=== PATIENT | male | born 1980 | race Caucasian/White ===

== ENCOUNTER 2022-01-27 23:40 | Inpatient (IN) | payer OTHER, SELFPAY ==
[2022-01-27 23:41] VITALS: BP 132/90; PULSE 63; RESP 18; TEMP 37.1; O2SAT 97; BMI 22.4
--- NOTE | 2022-01-27 23:54 | ED_ITS ---
HPI - Psych General Chief Complaint: Psychiatric Symptoms Stated Complaint: crisis Time Seen by Provider: 01/27/22 23:46 Source: patient and EMS Mode of arrival: EMS Limitations: no limitations History of Present Illness HPI Narrative: 41-year-old male history of anxiety, atrial fibrillation, CVA presenting to the emergency department via ambulance on a Section 12 for suicidal ideation with plan to overdose on prescription medicine. Patient reports that he has been feeling suicidal for the past few days, it has been worsening. Tells me he recently left his girlfriend of 20 years, his dogs, the holiday season seems to be a trigger for him.. Denies visual, auditory and tactile hallucinations. Denies drugs, alcohol and tobacco. Patient was seen by the behavioral health team in the community and it was determined that patient will be an inpatient bed search, patient is happy about this he thinks he requires inpatient admission. Denies homicidal ideation. Denies medical complaints at this time. Patient tells me his only psychiatric history is anxiety, he got this after his CVA, he sees a therapist for this however he has never had any inpatient psychiatric admissions or has been hospitalized for psychiatric complaints. Related Data Home Medications Medication Instructions Recorded Confirmed aspirin 81 mg chewable tablet 81 mg PO DAILY 01/28/22 01/28/22 Allergies Allergy/AdvReac Type Severity Reaction Status Date / Time acetaminophen [From Vicodin] AdvReac Hives Verified 01/28/22 00:03 hydrocodone [From Vicodin] AdvReac Hives Verified 01/28/22 00:03 Review of Systems Review of Systems: Constitutional : No Weight loss, No Fever, No Chills, No Fatigue, No Malaise ENT/Mouth : No sore throat, No Rhinorrhea Eyes: No Eye Pain, No Swelling, No Redness Cardiovascular : No Chest Pain, No SOB, No Dyspnea on Exertion, No Orthopnea, No Edema, No Palpitations Respiratory : No Cough, No Sputum, No Wheezing Gastrointestinal : No Nausea, No Vomiting, No Diarrhea, No Constipation, No abdominal Pain, No Hematochezia, No Melena Genitourinary : No Dysuria, No Urinary Frequency, No Hematuria, Musculoskeletal : No joint pain, No Myalgias, No Joint Swelling Skin : No Skin Lesions, No rash Neuro : No Weakness, No Numbness, No Dizziness, No Headache Psych : + Anxiety/Panic, + Depression, + SI All other systems reviewed and are negative Yes all other systems are reviewed and are negative [facility] Past Medical History Attestation statement: The following information was validated with the patient. Source: old records reviewed and nursing notes reviewed Medical History Atrial fibrillation Hyperlipidemia Stroke Social History Social History Advance Directives: No Physical Exam Vital Signs: Vital Signs: Last Vital Signs Temp 98.5 F 01/28/22 00:14 Pulse 72 01/28/22 00:14 Resp 16 01/28/22 00:14 BP 112/81 01/28/22 00:14 Pulse Ox 98 01/28/22 00:14 O2 Del Method 01/28/22 00:14 BMI result Body Mass Index 22.4 vss Appearance: Alert.? Oriented X3.? No acute distress.? Head: Normocephalic, atraumatic, no step-offs or deformities Eyes: Pupils equal, round and reactive to light.? CVS: Normal heart rate and rhythm.? Pulses normal.? Respiratory: No respiratory distress.? Breath sounds normal.? Abdomen: Soft and nontender.? Skin: Skin warm and dry.? Normal skin color.? Normal skin turgor.? Extremities: No lower extremity edema.? No calf ttp. 5/5 strength to bilateral upper and lower extremities Neuro: Oriented X 3.? No motor deficit.? No sensory deficit. CN 2-12 intact Course Reevaluation(s) Reevaluation #1: Patient reporting slight headache, will give Tylenol. Nonfocal neuro exam. Cerebellar function intact. Patient tells me it feels like a tension type headache. Offered him medication he does not want anything he would just like something to help him sleep and for his anxiety. Feels like his typical headache without vision changes or dizziness. Unlikely stroke or posterior stroke. Patient's CBC appears to be within normal limits. Chemistry w/o acute findings. Urine toxicology positive for marijuana. Salicylates, acetaminophen negative. Ethanol level negative COVID negative. At this time patient will be placed into physician observation to allow more time for inpatient psychiatric placement. At time observation started patient on a Section 12. Common cooperative. Stable vitals. Gave Ativan for anxiety. Will continue to monitor. Time: 00:57 Medications Administered Generic Name Dose Route Start Last Admin Trade Name Nathaly PRN Reason Stop Dose Admin Aspirin 81 mg 01/28/22 09:00 01/28/22 00:51 Aspirin 81 Mg Tab.Chew PO 81 mg DAILY LEANN Administration Medical Decision Making Medical Decision Making [facility] Narrative: [id number] 41-year-old male presents on a Section 12 for suicidal ideation with plan to overdose. Increasing life stressors Physical examination benign. Plan at this time basic labs, medical clearance, evaluation by the behavioral health team. Critical Care Time Critical Care Time Critical Care Time: No Discharge Plan Discharge Clinical Impression: Acute anxiety, Suicidal ideation, Depression Patient Disposition: Still a Patient Prescriptions: No Action aspirin 81 mg Tablet,Chewable 81 mg PO DAILY
[2022-01-28 00:06] VITALS: BP 112/81; PULSE 72; RESP 16; TEMP 36.9; O2SAT 98
[2022-01-28 00:14] VITALS: BP 112/81; PULSE 72; RESP 16; TEMP 36.9; O2SAT 98
[2022-01-28 00:41] LABS: MANUAL DIFF FLAG NO
[2022-01-28 00:43] LABS: Basophils Percent Auto 0.4 % (0-2); Eosinophils Absolute Auto 0.1 X10*3/uL (0.0-0.4); Eosinophils Percent Auto 1.2 % (0-4); Hematocrit 39.6 % (42.0-52.0); Hemoglobin 13.2 g/dl (14.0-18.0); Imm Gran Abs Auto 0.01 X10*3/uL (0.00-0.03); Imm Gran Pct Auto 0.2 % (0.0-0.4); Lymphocytes Absolute Auto 2.8 X10*3/uL (1.2-4.9); Lymphocytes Percent Auto 56.6 % (20-40); Mean Corpuscular HGB Conc 33.3 g/dl (31.0-36.0); Mean Corpuscular Hemoglobin 28.8 pg (27.0-33.0); Mean Corpuscular Volume 86.3 fL (80.0-98.0); Mean Platelet Volume 10.4 fL (9.4-12.4); Monocytes Absolute Auto 0.5 X10*3/uL (0.1-1.2); Monocytes Percent Auto 9.6 % (2-11); Neutrophils Absolute Auto 1.6 x10*3/uL (2.0-8.3); Platelet Count 223 X10*3/uL (160-400); Red Blood Count 4.59 X10*6/uL (4.60-5.80); Red Cell Distribution Width 13.8 % (11.0-16.0)
[2022-01-28 00:51] LABS: COVID-19 Test Negative (Negative)
[2022-01-28] MEDS: Aspirin 81 MG TAB.CHEW PO ×2 (00:51→08:29)
[2022-01-28 00:52] LABS: Amphetamine Screen Urine Not Detected (Not Detect); Barbiturates, Urine Not Detected (Not Detect); Benzodiazepines Screen Urine Not Detected (Not Detect); Cannabinoid Screen Urine POSITIVE (Not Detect); Cocaine Screen Urine Not Detected (Not Detect); Fentanyl, urine Not Detected (Not Detect); Opiate Screen Urine Not Detected (Not Detect); Phencyclidine Screen Urine Not Detected (Not Detect)
[2022-01-28 00:56] LABS: Acetaminophen LAB < 1 mcg/mL (<30); Ethanol < 10 mg/dL; Salicylate < 5.0 mg/dL (15-30)
[2022-01-28 01:04] LABS: Alanine Aminotransferase 10 U/L (0-40); Albumin Level 4.2 g/dL (3.5-5.0); Alkaline Phosphatase 55 U/L (39-117); Anion Gap 12 (12-20); Aspartate Amino Transferase 15 U/L (5-37); Blood Urea Nitrogen 12 mg/dL (9-16); Calcium 9.2 mg/dL (8.4-10.2); Carbon Dioxide 26 mmol/L (22-29); Chloride 104 mmol/L (96-108); Creatinine Clr Calc Pharmacy 116.1; Estimated Glomerular Filt Rate > 60; Glucose Random 106 mg/dL (60-115); Potassium 3.9 mmol/L (3.3-5.1); Sodium 138 mmol/L (135-145); Total Protein 6.6 g/dL (6.5-8.0)
[2022-01-28 01:25] LABS: Appearance Urine Clear; Color Urine Yellow; Glucose Urine UA Negative (Negative); Leukocyte Esterase Urine Negative (Negative); Nitrite Urine Negative (Negative); PH 5.5 (5.0-9.0); Specific Gravity - Urine >= 1.030 (1.005-1.025); Urine Blood Negative (Negative); Urine Ketones Trace mg/dL (Negative); Urine Protein Trace mg/dL (Neg-Trace)
[2022-01-28 01:37] LABS: Bilirubin Total 0.3 mg/dL (0.0-1.0)
--- NOTE | 2022-01-28 06:31 | PC.NURSE ---
Patient slept through the night, no distress observed/reported, patient was assessed by [facility] in the community with disposition section 12 inpatient bed search, med rec completed, patient is currently on Aspirin 81 mg daily, administered yesterday's missed dose, behavior appropriate, will continue to monitor.
[2022-01-28 08:48] VITALS: BP 110/69; PULSE 70; RESP 20; TEMP 37.2; O2SAT 96
[2022-01-28 14:15] VITALS: BP 121/81; PULSE 81; RESP 20; TEMP 36.6; O2SAT 97
[2022-01-28 15:20] VITALS: BMI 22.0
--- NOTE | 2022-01-28 16:40 | PC.ADMIT ---
Bg is a 41-year-old male who presented to [facility] ED secondary to SI and plan to overdose on medications. Pt admitted to [facility] 01/28/22 at 1409, CV and 3-day signed. Tox screen positive for marijuana. No hx of prior inpatient admissions. Psych dx includes MDD single episode, mild alcohol use disorder (pt denies current alcohol use). Precipitant to admission includes his fiance kicking him out of their home and he's been living in the attic of his mother's apartment. Pt has a-fib and had a stroke 4 years ago, he's scared to become incapacitated. Pt is alert and oriented x4, pleasant and cooperative. Mood is depressed, affect is congruent. Thought process is linear. Pt endorses vague SI but feels safe on the unit. Pt denies HI/AH/VH.
[2022-01-28 21:00] VITALS: BP 139/86; PULSE 66; RESP 12; TEMP 36.6; O2SAT 96
--- NOTE | 2022-01-28 21:05 | PC.NURSE ---
Pt submitted 3 day notice on 01/28, up on 02/02.
[2022-01-28] MEDS: hydrOXYzine HCL 25 MG TABLET PO (22:02)
[2022-01-28] MEDS: traZODone HCL 50 MG TABLET PO (22:02)
[2022-01-29] MEDS: Aspirin 81 MG TAB.CHEW PO (08:23)
[2022-01-29 08:35] VITALS: BP 147/76; PULSE 96; TEMP 36.1; O2SAT 100
[2022-01-29 08:52] LABS: Estimated Average Glucose 114 mg/dL; Hemoglobin A1c % 5.6 %
[2022-01-29 09:37] LABS: Alanine Aminotransferase 10 U/L (0-40); Albumin Level 4.4 g/dL (3.5-5.0); Alkaline Phosphatase 51 U/L (39-117); Anion Gap 11 (12-20); Aspartate Amino Transferase 16 U/L (5-37); Bilirubin Total 0.8 mg/dL (0.0-1.0); Blood Urea Nitrogen 14 mg/dL (9-16); Calcium 9.5 mg/dL (8.4-10.2); Carbon Dioxide 28 mmol/L (22-29); Chloride 104 mmol/L (96-108); Cholesterol 251 mg/dL; Estimated Glomerular Filt Rate > 60; Glucose Fasting 97 mg/dL (60-99); HDL Cholesterol 32 mg/dL; LDL Cholesterol Calculated 200 mg/dl; Sodium 139 mmol/L (135-145); Thyroid Stimulating Hormone 0.58 uIU/mL (0.32-4.0); Triglycerides 95 mg/dL
--- NOTE | 2022-01-29 09:45 | HO.PSYADMNOT ---
HPI Date of Service: 01/29/22 Chief Complaint: SI Sources of Information: patient interviewed, chart reviewed and crisis/core team assessment reviewed HPI Subjective Notes: May Warning, Conditional Voluntary and 3 Day Narrative: Mr. Lassiter is a 41 year-old male with hx of MDD, who was assessed by [facility] after pt self presented reporting increased depression and suicidal ideation without a plan in context of ongoing problems with GF of 20 years. In the ED, his utox was positive for cannabis. On the unit, Mr. Lassiter reports he has been having problems with girlfriend for some years now. He states that relationship has gotten to a point where he thinks this may be the end. He reports he had an argument with GF 4 days prior to presenting to [facility] crisis and he left the house where he has resided with GF and their 2 children. He reports he went to his mother's house. He reports he has been dialing a lot of medical problems after he had a stoke 4 years ago. He reports he has not been able to work since then and also worries about his finances. He reports he was overwhelmed and feeling hopeless and having suicidal ideation but denies any plan or intent at time of seeking help with crisis. He reports now he feels better, in that he knows he is going through a lot and still thinks the best for him and his girlfriend may be to part ways but he is no longer feeling suicidal. He identifies his children and his mother as protective factors. He reports seeing a therapist weekly with whom he states feels connected. He is currently not taking any medications but may be able to see psychiatrist if needed. No hx of VH/AH. No s/s of nhi or hypomania. Collateral information was gathered from his mother- Amita who reports he has had stressful days but do believe pt is not at imminent harm to self or others. She is advocating for discharge as both pt and mother do no think inpatient level of care is what he needs. Past Psychiatric History: Inpt: none OP: [facility] therapist for several years, weekly OP therapy Suicide attempts: denies. Medical Evaluation Reviewed: Yes [facility] Medical History Atrial fibrillation Hyperlipidemia Stroke Family History: none Social History: Currently from GF of last 20 years. He has 3 children. One with previous partner and 2 with current GF. Not working after he had CVA 4 years ago. Substance History: cannabis on and off Trauma History: none Diagnostics Vital Signs (24Hr): Vital Signs - 24 hr 01/28/22 14:15 01/28/22 21:00 01/29/22 08:35 Temperature 97.8 F 97.9 F 96.9 F Pulse Rate 81 66 96 Respiratory Rate 20 12 Blood Pressure 121/81 139/86 147/76 H Pulse Oximetry 97 96 100 Oxygen Delivery Method Room Air Room Air Room Air BMI result Body Mass Index 22.0 Labs Results: 01/28/22 00:30 01/29/22 08:23 Labs: Laboratory Results - last 48 hr 01/28/22 01/28/22 01/28/22 00:18 00:19 00:20 WBC RBC Hgb Hct MCV MCH MCHC RDW Plt Count MPV Immature Gran % (Auto) Neut % (Auto) Lymph % (Auto) [place] % (Auto) Eos % (Auto) Baso % (Auto) Lymph # (Auto) [place] # (Auto) Eos # (Auto) Baso # (Auto) Abs Immat Gran (auto) Absolute Neuts (auto) Absolute Nucleated RBC Nucleated RBC % (auto) Sodium Potassium Chloride Carbon Dioxide Anion Gap BUN Creatinine Estim Creat Clear Calc Estimated GFR Random Glucose Fasting Glucose Estimat Average Glucose Hemoglobin A1c % Calcium Total Bilirubin AST ALT Alkaline Phosphatase Total Protein Albumin Triglycerides Cholesterol LDL Cholesterol, Calc HDL Cholesterol TSH Urine Color Yellow Urine Appearance Clear Urine pH 5.5 Ur Specific [place] >= 1.030 H Urine Protein Trace Urine Glucose (UA) Negative Urine Ketones Trace Urine Blood Negative Urine Nitrite Negative Ur Leukocyte Esterase Negative Salicylates Urine Opiates Screen Not Detected Urine Fentanyl Screen Not Detected Acetaminophen Ur Barbiturates Screen Not Detected Ur Phencyclidine Scrn Not Detected Ur Amphetamines Screen Not Detected U Benzodiazepines Scrn Not Detected Urine Cocaine Screen Not Detected U Marijuana (THC) Screen POSITIVE H Ethyl Alcohol COVID-19 (VIVI) Negative COVID-19 Clin Com See Note 01/28/22 01/28/22 01/28/22 00:30 00:31 00:31 WBC 5.0 RBC 4.59 L Hgb 13.2 L Hct 39.6 L MCV 86.3 MCH 28.8 MCHC 33.3 RDW 13.8 Plt Count 223 MPV 10.4 Immature Gran % (Auto) 0.2 Neut % (Auto) 32.0 L Lymph % (Auto) 56.6 H [place] % (Auto) 9.6 Eos % (Auto) 1.2 Baso % (Auto) 0.4 Lymph # (Auto) 2.8 [place] # (Auto) 0.5 Eos # (Auto) 0.1 Baso # (Auto) 0.0 Abs Immat Gran (auto) 0.01 Absolute Neuts (auto) 1.6 L Absolute Nucleated RBC 0.000 Nucleated RBC % (auto) 0.0 Sodium 138 Potassium 3.9 Chloride 104 Carbon Dioxide 26 Anion Gap 12 BUN 12 Creatinine 0.80 Estim Creat Clear Calc 116.1 Estimated GFR > 60 Random Glucose 106 Fasting Glucose Estimat Average Glucose Hemoglobin A1c % Calcium 9.2 Total Bilirubin 0.3 AST 15 ALT 10 Alkaline Phosphatase 55 Total Protein 6.6 Albumin 4.2 Triglycerides Cholesterol LDL Cholesterol, Calc HDL Cholesterol TSH Urine Color Urine Appearance Urine pH Ur Specific [place] Urine Protein Urine Glucose (UA) Urine Ketones Urine Blood Urine Nitrite Ur Leukocyte Esterase Salicylates < 5.0 L Urine Opiates Screen Urine Fentanyl Screen Acetaminophen < 1 Ur Barbiturates Screen Ur Phencyclidine Scrn Ur Amphetamines Screen U Benzodiazepines Scrn Urine Cocaine Screen U Marijuana (THC) Screen Ethyl Alcohol < 10 COVID-19 (VIVI) COVID-19 Clin Com 01/29/22 01/29/22 08:23 08:23 WBC RBC Hgb Hct MCV MCH MCHC RDW Plt Count MPV Immature Gran % (Auto) Neut % (Auto) Lymph % (Auto) [place] % (Auto) Eos % (Auto) Baso % (Auto) Lymph # (Auto) [place] # (Auto) Eos # (Auto) Baso # (Auto) Abs Immat Gran (auto) Absolute Neuts (auto) Absolute Nucleated RBC Nucleated RBC % (auto) Sodium 139 Potassium 4.0 Chloride 104 Carbon Dioxide 28 Anion Gap 11 L BUN 14 Creatinine 0.95 Estim Creat Clear Calc 96.0 Estimated GFR > 60 Random Glucose Fasting Glucose 97 Estimat Average Glucose 114 Hemoglobin A1c % 5.6 Calcium 9.5 Total Bilirubin 0.8 AST 16 ALT 10 Alkaline Phosphatase 51 Total Protein 7.0 Albumin 4.4 Triglycerides 95 Cholesterol 251 LDL Cholesterol, Calc 200 HDL Cholesterol 32 TSH 0.58 Urine Color Urine Appearance Urine pH Ur Specific [place] Urine Protein Urine Glucose (UA) Urine Ketones Urine Blood Urine Nitrite Ur Leukocyte Esterase Salicylates Urine Opiates Screen Urine Fentanyl Screen Acetaminophen Ur Barbiturates Screen Ur Phencyclidine Scrn Ur Amphetamines Screen U Benzodiazepines Scrn Urine Cocaine Screen U Marijuana (THC) Screen Ethyl Alcohol COVID-19 (VIVI) COVID-19 Clin Com Meds/Allergies Meds Home Medications Medication Instructions Recorded Confirmed Type aspirin 81 mg chewable tablet 81 mg PO DAILY 01/28/22 01/28/22 History Allergies Allergies Allergy/AdvReac Type Severity Reaction Status Date / Time acetaminophen [From Vicodin] AdvReac Hives Verified 01/28/22 00:03 hydrocodone [From Vicodin] AdvReac Hives Verified 01/28/22 00:03 Mental Status Exam Mental Status Exam Narrative: Appearance: casually groomed, good hygiene in NAD Behavior: cooperative Psychomotor: no agitation or retardation noted Speech: clear, normal rate/rhythm/volume, spontaneous TP: tangential TC:no s/s of psychosis, feeling overwhelmed but calmer with no SI. Mood: better Affect: congruent SI: none HI: none VH/AH: none Delusions: none Insight/judgment: none Memory/cog: alert, oriented x 3. not formally tested.reports cognitive impairments after stroke. Assessment & Plan Assessment & Plan (1) MDD (major depressive disorder), recurrent episode, moderate: Status: Acute Code(s): F33.1 - Major depressive disorder, recurrent, moderate Plan Mr. Lassiter is a 41 year-old male with hx of MDD, self presented to [facility] crisis reporting increase depression, suicidal ideation in context of ongoing problems with GF of 20 years but exacerbating in past few months. Pt now denies suicidal or homicidal ideation. He reports feeling less overwhelmed, calmer, understands that he is going through difficult situation and this may be end of a 20 year relationship but denies SI. Pt is able to identify protective factors such as his children and mother. Collateral information gathered from mother, who denies any safety concerns and agrees with discharge. PLAN admit and discharge from [facility]. Follow up with OP [facility] Patient educated on: diagnosis Reason for continued inpatient stay Substantial Risk for: stable for discharge Statement Statement: I have reviewed the history and physical and performed a pertinent examination on my patient. No changes have occurred unless specified.
[2022-01-29 10:20] LABS: Folate 13.6 ng/mL (> or = 4.0); Vitamin B12 354 pg/mL (200-900)
--- NOTE | 2022-01-29 12:25 | PM.EVENT ---
Event Note Date of Service: 01/29/22 Event Note: After discussing with Ms. Kinsey Rosas this consult has been withdrawn and therefore have not see the patient
--- NOTE | 2022-01-29 12:53 | PM.PSYDC ---
DS: Providers Provider Date of Service: 01/29/22 Date of admission: 01/28/22 13:24 Primary care physician: Unknown Physician Consults: 01/28/22 16:27 Consult to Cardiology Routine Consulting Provider: Jesus Moss Reason for consultation: afib Has provider been notified: No DS: Diagnosis Discharge Diagnosis (1) MDD (major depressive disorder), recurrent episode, moderate: Status: Acute DS: Medications Discharge Medications Home Medications: Home Medications Medication Instructions Recorded Confirmed aspirin 81 mg chewable tablet 81 mg PO DAILY 01/28/22 01/28/22 Mental Status Exam Mental Status Exam Narrative: Appearance: casually groomed, good hygiene in NAD Behavior: cooperative Psychomotor: no agitation or retardation noted Speech: clear, normal rate/rhythm/volume, spontaneous TP: tangential TC:no s/s of psychosis, feeling overwhelmed but calmer with no SI. Mood: better Affect: congruent SI: none HI: none VH/AH: none Delusions: none Insight/judgment: none Memory/cog: alert, oriented x 3. not formally tested.reports cognitive impairments after stroke. Data Data Completed and Pending Completed studies during hospitalization [Text1]: 01/28/22 01/28/22 01/28/22 00:18 00:19 00:20 WBC RBC Hgb Hct MCV MCH MCHC RDW Plt Count MPV Immature Gran % (Auto) Neut % (Auto) Lymph % (Auto) [place] % (Auto) Eos % (Auto) Baso % (Auto) Lymph # (Auto) [place] # (Auto) Eos # (Auto) Baso # (Auto) Abs Immat Gran (auto) Absolute Neuts (auto) Absolute Nucleated RBC Nucleated RBC % (auto) Sodium Potassium Chloride Carbon Dioxide Anion Gap BUN Creatinine Estim Creat Clear Calc Estimated GFR Random Glucose Fasting Glucose Estimat Average Glucose Hemoglobin A1c % Calcium Total Bilirubin AST ALT Alkaline Phosphatase Total Protein Albumin Triglycerides Cholesterol LDL Cholesterol, Calc HDL Cholesterol Vitamin B12 Folate TSH Urine Color Yellow Urine Appearance Clear Urine pH 5.5 Ur Specific [place] >= 1.030 H Urine Protein Trace Urine Glucose (UA) Negative Urine Ketones Trace Urine Blood Negative Urine Nitrite Negative Ur Leukocyte Esterase Negative Salicylates Urine Opiates Screen Not Detected Urine Fentanyl Screen Not Detected Acetaminophen Ur Barbiturates Screen Not Detected Ur Phencyclidine Scrn Not Detected Ur Amphetamines Screen Not Detected U Benzodiazepines Scrn Not Detected Urine Cocaine Screen Not Detected U Marijuana (THC) Screen POSITIVE H Ethyl Alcohol COVID-19 ([facility]IVI) Negative COVID-19 Clin Com See Note 01/28/22 01/28/22 01/28/22 00:30 00:31 00:31 WBC 5.0 RBC 4.59 L Hgb 13.2 L Hct 39.6 L MCV 86.3 MCH 28.8 MCHC 33.3 RDW 13.8 Plt Count 223 MPV 10.4 Immature Gran % (Auto) 0.2 Neut % (Auto) 32.0 L Lymph % (Auto) 56.6 H [place] % (Auto) 9.6 Eos % (Auto) 1.2 Baso % (Auto) 0.4 Lymph # (Auto) 2.8 [place] # (Auto) 0.5 Eos # (Auto) 0.1 Baso # (Auto) 0.0 Abs Immat Gran (auto) 0.01 Absolute Neuts (auto) 1.6 L Absolute Nucleated RBC 0.000 Nucleated RBC % (auto) 0.0 Sodium 138 Potassium 3.9 Chloride 104 Carbon Dioxide 26 Anion Gap 12 BUN 12 Creatinine 0.80 Estim Creat Clear Calc 116.1 Estimated GFR > 60 Random Glucose 106 Fasting Glucose Estimat Average Glucose Hemoglobin A1c % Calcium 9.2 Total Bilirubin 0.3 AST 15 ALT 10 Alkaline Phosphatase 55 Total Protein 6.6 Albumin 4.2 Triglycerides Cholesterol LDL Cholesterol, Calc HDL Cholesterol Vitamin B12 Folate TSH Urine Color Urine Appearance Urine pH Ur Specific [place] Urine Protein Urine Glucose (UA) Urine Ketones Urine Blood Urine Nitrite Ur Leukocyte Esterase Salicylates < 5.0 L Urine Opiates Screen Urine Fentanyl Screen Acetaminophen < 1 Ur Barbiturates Screen Ur Phencyclidine Scrn Ur Amphetamines Screen U Benzodiazepines Scrn Urine Cocaine Screen U Marijuana (THC) Screen Ethyl Alcohol < 10 COVID-19 ([facility]) COVID-19 Clin Com 01/29/22 01/29/22 01/29/22 08:23 08:23 08:23 WBC RBC Hgb Hct MCV MCH MCHC RDW Plt Count MPV Immature Gran % (Auto) Neut % (Auto) Lymph % (Auto) [place] % (Auto) Eos % (Auto) Baso % (Auto) Lymph # (Auto) [place] # (Auto) Eos # (Auto) Baso # (Auto) Abs Immat Gran (auto) Absolute Neuts (auto) Absolute Nucleated RBC Nucleated RBC % (auto) Sodium 139 Potassium 4.0 Chloride 104 Carbon Dioxide 28 Anion Gap 11 L BUN 14 Creatinine 0.95 Estim Creat Clear Calc 96.0 Estimated GFR > 60 Random Glucose Fasting Glucose 97 Estimat Average Glucose 114 Hemoglobin A1c % 5.6 Calcium 9.5 Total Bilirubin 0.8 AST 16 ALT 10 Alkaline Phosphatase 51 Total Protein 7.0 Albumin 4.4 Triglycerides 95 Cholesterol 251 LDL Cholesterol, Calc 200 HDL Cholesterol 32 Vitamin B12 354 Folate 13.6 TSH 0.58 Urine Color Urine Appearance Urine pH Ur Specific [place] Urine Protein Urine Glucose (UA) Urine Ketones Urine Blood Urine Nitrite Ur Leukocyte Esterase Salicylates Urine Opiates Screen Urine Fentanyl Screen Acetaminophen Ur Barbiturates Screen Ur Phencyclidine Scrn Ur Amphetamines Screen U Benzodiazepines Scrn Urine Cocaine Screen U Marijuana (THC) Screen Ethyl Alcohol COVID-19 ([facility]I) COVID-19 Clin Com DS: Summary Hospital Course Hospital Course: Subjective Notes: May Warning, Conditional Voluntary and 3 Day Narrative: Mr. Lassiter is a 41 year-old male with hx of MDD, who was assessed by [facility] on [facility] after pt self presented reporting increased depression and suicidal ideation without a plan in context of ongoing problems with GF of 20 years. In the ED, his utox was positive for cannabis. On the unit, Mr. Lassiter reports he has been having problems with girlfriend for some years now. He states that relationship has gotten to a point where he thinks this may be the end. He reports he had an argument with GF 4 days prior to presenting to [facility] crisis and he left the house where he has resided with GF and their 2 children. He reports he went to his mother's house. He reports he has been dialing a lot of medical problems after he had a stoke 4 years ago. He reports he has not been able to work since then and also worries about his finances. He reports he was overwhelmed and feeling hopeless and having suicidal ideation but denies any plan or intent at time of seeking help with crisis. He reports now he feels better, in that he knows he is going through a lot and still thinks the best for him and his girlfriend may be to part ways but he is no longer feeling suicidal. He identifies his children and his mother as protective factors. He reports seeing a therapist weekly with whom he states feels connected. He is currently not taking any medications but may be able to see psychiatrist if needed. No hx of VH/AH. No s/s of nhi or hypomania. Collateral information was gathered from his mother- Amita who reports he has had stressful days but do believe pt is not at imminent harm to self or others. She is advocating for discharge as both pt and mother do no think inpatient level of care is what he needs. Past Psychiatric History: Inpt: none OP: [facility] therapist for several years, weekly OP therapy Suicide attempts: denies. Medical Evaluation Reviewed: Yes Status at Discharge Cognitive/behavioral status at discharge: Pt with brighter, non labile mood. No SI/HI. Appropriate anxiety and sadness about possibility of end of a 20 year long relationship with the mother of his children, but future oriented, able to identify his children and mother as protective factors. No signs of aggression towards self or others. No VH/AH. Functional status at discharge: independent ambulation Overall status at discharge: patient is progressing back to baseline Time Spent with Patient Time attestation: Total time spent providing and/or coordinating discharge services: Discharge Plan Discharge Anticipated Discharge Date/Time: 01/29/22 12:53 Patient Disposition: Home, Self-Care Discharge Diagnosis: MDD, recurrent, moderate Referrals: [facility] [Physician] - 1 Week Discharge Medications: Continued aspirin 81 mg Tablet,Chewable 81 mg PO DAILY Discharge Orders: Discharge Order (Routine); Ordered 01/29/22 Ordered By: Kinsey Rosas Diet: Regular diet Activity on Discharge: As tolerated Stand Alone Forms: Patient Portal Discharge page Care Plan Goals: 1. Maintain mood 2. NO SI/HI Health Concerns: Follow up with cardiology for loop monitor that needs new battery. Follow up with PCP for routine care Plan of Treatment: 1. Continue OP therapy. 2. Go to nearest ED or 911 in event of emergency Assessment: Pt with brighter, non labile affect. No SI/HI. Anxious about current situation with GF of 20 years but future oriented. No signs of aggression towards self or others. Mother agrees with plan and denies any safety concerns at time of discharge.
--- NOTE | 2022-01-29 13:39 | PC.NURSE ---
Alert and oriented x4. Patient denies SI/HI/AH/VH. Reports that he feels safe to go home. In agreement with discharge teachings. No acute physical complaints required. Patient is future oriented.
== END 2022-01-29 13:33 | disposition home or self-care (01) | DRG 751 ==
LOC: HO.ED 01-28 13:04 → HO.PADLT16 01-28 13:38
PROVIDERS: Admitting Provider Psychiatry & Neurology Psychiatry; Emergency Provider Internal Medicine; Visit Provider Social Worker
DX: F33.1 Major depressive disorder, recurrent, moderate (principal); R45.851 Suicidal ideations; E78.5 Hyperlipidemia, unspecified; F41.9 Anxiety disorder, unspecified; I48.91 Unspecified atrial fibrillation; Z20.822 Contact with and (suspected) exposure to COVID-19; Z86.73 Personal history of transient ischemic attack (TIA), and cerebral infarction without residual deficits; Z87.891 Personal history of nicotine dependence; Z88.5 Allergy status to narcotic agent; Z88.6 Allergy status to analgesic agent; Z79.82 Long term (current) use of aspirin
CPT/HCPCS: 36415; 80053; 80061; 80143; 80179; 80307; 81003; 82077; 82607; 82746; 83036; 84443; 85025; 87635; 99285